=== PATIENT | female | born 1980 | race Caucasian/White ===

== ENCOUNTER → 2021-07-28 | Day surgery (SDC) | payer OTHER ==
[~2021-07-28] MED LIST: ACETAMINOPHEN 1000 MG/100 ML 100 ML IV ONE; BUPIVACAINE HCL 0.5% INJ 30 ML VIAL INJ ONE; BUPROPION HCL100 MG PO; FENTANYL CITRATE/PF 100MCG/2 ML INJ ONE; IOPAMIDOL 200 MG/ML 20 ML VIAL IT ONE; METHOCARBAMOL750 MG PO; MIDAZOLAM HCL 2 MG/2 ML VIAL ONE; MONTELUKAST SOD10 MG PO; NAPROXEN250 MG PO; TRIAMCINOLONE ACET 40 MG/ML VIAL ONE; VYVANSE50 MG PO
[2021-07-28 10:25] VITALS: BP 104/74
== END | disposition home or self-care (01) ==
LOC: OR 07:40
PROVIDERS: ATTEND Specialist
DX: D48.0 Neoplasm of uncertain behavior of bone and articular cartilage (principal); K44.9 Diaphragmatic hernia without obstruction or gangrene; F90.9 Attention-deficit hyperactivity disorder, unspecified type; F32.A Depression, unspecified; Z88.2 Allergy status to sulfonamides; Z01.810 Encounter for preprocedural cardiovascular examination; Z01.812 Encounter for preprocedural laboratory examination; Z20.822 Contact with and (suspected) exposure to COVID-19
CPT/HCPCS: 20610; 77002; 81025; 93005; J0131; J2250; J3010; J3301; Q9967; U0002